=== PATIENT | male | born 1955 | race Caucasian/White ===

== ENCOUNTER 2020-10-18 11:01 | Observation (INO) ==
[2020-10-18 11:34] LABS: Basophils # 0.1 10*3/uL (0.0-0.2); Basophils % 0.9 % (0.0-0.8); Eosinophils # 0.1 10*3/uL (0.0-0.87); Eosinophils % 1.2 % (0.00-10.9); Hematocrit 33.5 VOL% (42.0-52.0); Hemoglobin 11.2 GM/DL (14.0-18.0); Immature Granulocytes % 0.2 %; Immature Granulocytes Absolute 0.02 #; Lymphocytes # 2.8 10*3/uL (1.4-4.0); Lymphocytes % 28.1 % (21.2-54.2); Mean Corpuscular HGB Conc 33.4 GM/DL (32-36); Mean Corpuscular Volume 81.7 FL (87-102); Mean Platelet Volume 10.3 FL (9.6-12.0); Monocytes # 0.7 10*3/uL (0.11-0.8); Monocytes % 6.9 % (1.7-12.7); Neutrophils % 62.7 % (38.7-73.9); Platelet Count 256 T/CUMM (130-400); Red Cell Distribution Width 13.8 % (9.3-17.3); White Blood Count 9.9 T/CUMM (4-12)
[2020-10-18 11:58] LABS: Alanine Aminotransferase 30 U/L (16-61); Albumin 4.1 G/DL (3.4-5.0); Alkaline Phosphatase 77 U/L (45-117); Aspartate Amino Transferase 15 U/L (0-37); Bilirubin,Total < 0.39 MG/DL (0.2-1.0); Blood Urea Nitrogen 31 MG/DL (7-18); Calcium 8.7 MG/DL (8.5-10.1); Carbon Dioxide 29 MMOL/L (21-32); Chloride 95 MMOL/L (98-107); Estimated Glom Filtration Rate 39 ML/MIN; Glucose 250 MG/DL (74-106); Osmolality,Calculated 272.9 MOS/KG (273-304); Potassium 3.3 MMOL/L (3.5-5.1); Sodium 129 MMOL/L (136-145); Total Protein 7.8 G/DL (6.4-8.3)
[2020-10-18] MEDS ORDERED: ONDANSETRON 4 MG/2 ML VIAL IV PRN (14:07)
[2020-10-18] MEDS ORDERED: BISACODYL 5 MG TABLET PO PRN (14:07)
[2020-10-18] MEDS ORDERED: ACETAMINOPHEN 325 MG TABLET PO PRN (14:07)
[2020-10-18] MEDS ORDERED: NITROGLYCERIN SL 0.4 MG TABLET SL PRN (14:07)
[2020-10-18] MEDS ORDERED: DEXTROSE 50% 25 GM/50 ML VIAL IV PRN (14:07)
[2020-10-18] MEDS ORDERED: GLUCAGON 1 MG VIAL IM PRN (14:07)
[2020-10-18] MEDS ORDERED: MORPHINE 4 MG/1 ML VIAL IV PRN (14:07)
[2020-10-18] MEDS ORDERED: ASPIRIN CHEW 81 MG TABLET PO STA (14:11)
[2020-10-18] MEDS ORDERED: MAGNESIUM SULF RIDER 2 GM in PREMIX 1 EACH IV PRN (14:12)
[2020-10-18] MEDS ORDERED: MAGNESIUM SULF RIDER 4 GM in PREMIX 1 EACH IV PRN (14:12)
[2020-10-18] MEDS ORDERED: ASPIRIN 325 MG TABLET ONE (14:42)
[2020-10-18] MEDS: INSULIN LISPRO 100 UNIT/ML SUBCUT SCH ×2 (17:36→21:26)
[2020-10-18] MEDS: POTASSIUM CHLORIDE 20 MEQ TABLET PO PRN ×2 (17:36→21:26)
[2020-10-18] MEDS: PANTOPRAZOLE 40 MG TABLET PO SCH (17:36)
[2020-10-18] MEDS: ENOXAPARIN 100 MG/ML SYRINGE SUBCUT SCH (17:36)
[2020-10-18 19:40] LABS: INR 1.2; PT Patient Result 12.5 SECS (9.8-11.9); Partial Thromboplastin Time 37.6 SECS (23.9-33.8)
[2020-10-18] MEDS: carvediloL 6.25 MG TABLET PO SCH (21:26)
[2020-10-19 01:30] LABS: Calcium 9.1 MG/DL (8.5-10.1); Osmolality,Calculated 277.4 MOS/KG (273-304); Potassium 3.6 MMOL/L (3.5-5.1)
[2020-10-19 01:34] LABS: Risk Ratio 3.96; VLDL Cholesterol 70.8 MG/DL
[2020-10-19 01:35] LABS: Troponin I < 0.015 NG/ML (0.00-0.045)
[2020-10-19 01:37] LABS: Basophils # 0.1 10*3/uL (0.0-0.2); Basophils % 0.8 % (0.0-0.8); Eosinophils # 0.2 10*3/uL (0.0-0.87); Eosinophils % 1.8 % (0.00-10.9); Hematocrit 33.6 VOL% (42.0-52.0); Hemoglobin 11.2 GM/DL (14.0-18.0); Immature Granulocytes % 0.7 %; Immature Granulocytes Absolute 0.08 #; Lymphocytes # 3.7 10*3/uL (1.4-4.0); Lymphocytes % 33.6 % (21.2-54.2); Mean Corpuscular HGB Conc 33.3 GM/DL (32-36); Mean Corpuscular Volume 81.8 FL (87-102); Mean Platelet Volume 10.5 FL (9.6-12.0); Monocytes % 9.1 % (1.7-12.7); Platelet Count 276 T/CUMM (130-400); Red Blood Count 4.11 MC/CUMM (3.8-5.5); Red Cell Distribution Width 13.8 % (9.3-17.3); White Blood Count 10.9 T/CUMM (4-12)
[2020-10-19] MEDS: ENOXAPARIN 100 MG/ML SYRINGE SUBCUT SCH (03:20)
[2020-10-19] MEDS ORDERED: ASPIRIN EC 81 MG TABLET PO SCH (09:00)
[2020-10-19] MEDS ORDERED: ASPIRIN EC 325 MG TABLET PO SCH (09:00)
[2020-10-19] MEDS ORDERED: ATORVASTATIN 40 MG TABLET PO SCH (09:00)
[2020-10-19] MEDS ORDERED: PRASUGREL 10 MG TABLET PO SCH (09:00)
[2020-10-19] MEDS: INSULIN LISPRO 100 UNIT/ML SUBCUT SCH ×2 (09:58→11:37)
[2020-10-19] MEDS: PANTOPRAZOLE 40 MG TABLET PO SCH (09:59)
[2020-10-19] MEDS: carvediloL 6.25 MG TABLET PO SCH (09:59)
[2020-10-19] MEDS ORDERED: diphenhydrAMINE CAP 25 MG CAPSULE PO ONE (10:52)
[2020-10-19] MEDS ORDERED: DIAZEPAM 5 MG TABLET PO ONE (10:52)
[2020-10-19] MEDS ORDERED: SODIUM CHLORIDE 0.45% 1,000 ML IV SCH (11:00)
[2020-10-19] MEDS ORDERED: NITROGLYCERIN DRIP 50 MG/250 ML BOTTLE IV ONE (11:37)
[2020-10-19] MEDS ORDERED: HYDROmorphone 2 MG/1 ML VIAL ONE (11:37)
[2020-10-19] MEDS ORDERED: MIDAZOLAM 2 MG/2 ML VIAL ONE (11:38)
[2020-10-19] MEDS ORDERED: VERAPAMIL 5 MG/2 ML VIAL ONE (11:38)
[2020-10-19] MEDS ORDERED: ENOXAPARIN 30 MG/0.3 ML SYRINGE ONE (12:16)
[2020-10-19] MEDS ORDERED: FUROSEMIDE 40 MG TABLET PO SCH (13:00)
[2020-10-19 15:20] VITALS: BP 120/65
[2020-10-19] MEDS ORDERED: INSULIN GLARGINE 100 UNIT/ML SUBCUT SCH (21:00)
[2020-10-20] MEDS ORDERED: FLUTICASONE/SALMETEROL 500-50 DISKUS 14 DOSE INH SCH (09:00)
== END 2020-10-19 16:40 | disposition home or self-care (01) ==
LOC: N.ED 11:01 → INTOOBSV 14:07 → N.EDINP 14:07 → N.TELES 15:15
PROVIDERS: ADMIT Internal Medicine; ATTEND Internal Medicine